=== PATIENT | male | born 1985 | race Caucasian/White ===

== ENCOUNTER 2018-07-29 13:36 | Observation (INO) ==
--- NOTE | 2018-07-29 14:10 | Emergency Department Note ---
Disposition Clinical Impression: Transaminitis, Incidental lung nodule, > 3mm and < 8mm, RUQ pain Hepatitis A Qualifiers: Hepatic coma status: without hepatic coma Qualified Code(s): B15.9 - Hepatitis A without hepatic coma Disposition: Admitted As Inpatient Condition: Good Time of Disposition: 22:41 General Adult HPI - General Chief complaint: ED Abdominal Pain Stated complaint: Flank Pain Time Seen by Provider: 07/29/18 13:44 Source: patient Limitations: no limitations Nursing Notes Reviewed: Yes Vital Signs Reviewed: Yes - History of Present Illness HPI Narrative: 33 old male presents from home a retirement for evaluation of a 2 day history of general health feeling. He has bilateral lower back pain with right upper quadrant pain both of which are worse with deep inspiration. Overnight, he began having a productive cough and is vomited twice. History of polysubstance use including IV drug use; no illicit substances in the last month. PMH: Hepatitis C Medications: None ROS: Positive: As above Negative: Diarrhea, constipation, melena, hematochezia, hematemesis, bilious vomiting, chest pains, palpitations, dyspnea, diaphoresis, incontinence of bowel or bladder, saddle anesthesia, lower extremity numbness/tingling/weakness, midline back pain. Pain Scale: 6 - Related Data Home Medications Medication Instructions Recorded Confirmed Albuterol Sulfate [Ventolin Hfa] 2 puff IH DAILY PRN 07/29/18 07/29/18 Buprenorphine HCl/Naloxone HCl 1.25 film SL DAILY 07/29/18 07/29/18 [Suboxone 8 mg-2 mg Sl Film] Allergies Allergy/AdvReac Type Severity Reaction Status Date / Time No Known Allergies Allergy Verified 07/29/18 21:25 All systems ED: reviewed and negative except as stated. Review of Systems: As Per HPI Past Medical History - Past Medical History Medical history: Reports: hepatitis Psychiatric history: Reports: no psych history - Social History Smoking Status: Current every day smoker Smokeless Tobacco Status: No Alcohol use: Reports: none Drug use: Reports: other Physical Exam Vital Signs Reviewed General: Patient is alert, oriented, and in no acute distress. Head: atraumatic, normocephalic Eye: normal appearance, PERRL, EOMI, no scleral icterus, no conjunctival injection ENT: mucous membranes moist, normal external ear exam Neck: normal inspection, trachea midline, full ROM Chest: normal inspection, symmetric chest rise Respiratory: Good respiratory effort. Bilateral breath sounds are equal with mild end expiratory wheezing in RLL. Cardiovascular: Regular rate and rhythm. No clicks, rubs, gallops, or murmors. Normal heart sounds. Abdomen: Bowel sounds present normoactive x-4 quadrants. Abdomen is soft, nondistended. Mild right upper quadrant tenderness. No guarding or rebound. No organomegaly noted. Musculoskeletal: Spontaneously moving all extremities. No midline back pain and no bilateral lumbar back pain to palpation. Skin: warm, dry, intact. Neuro: GCS 15. Alert and oriented x4. Sensation light touch intact and equal bilateral lower extremity is. Lower extremity strength 5/5 and equal. Psych: Patient's affect is appropriate for situation. - General Limitations: no limitations General appearance: alert, in no apparent distress Course Course Narrative: Given patient's right upper quadrant pain, will draw LFTs, bilirubin. Serum hematology is unremarkable. Serum chemistry shows elevated hepatic enzymes. Slight elevation in bilirubin. Patient was not jaundiced and had no icterus. Urinalysis shows moderate epithelial cells with trace leukocyte esterase and trace bilirubin. Low suspicion for UTI; suspect epithelial cell contamination. Right upper quadrant ultrasound is not convincing for acute cholecystitis. Chest x-ray shows a 6 mm right middle lobe indeterminate nodule. Will advise patient to have outpatient CT evaluation via his primary care physician. Patient's emergency department stay is prolonged secondary to awaiting his hepatitis profile. Chest X-Ray 07/29/18 14:00 IMPRESSION: 1. No acute cardiopulmonary process. 2. Indeterminate 6 mm nodule projecting over the right middle lobe. Consider CT correlation to further characterize this nodule. D/ / 07/29/2018 14:26:04 Gabriel Vance MD / maribel Interpreting Provider: Gabriel Vance MD Gallbladder Ultrasound 07/29/18 14:30 IMPRESSION: Small area of hypoechogenicity along the wall of the gallbladder favored to represent focal fatty sparing. Trace amount of pericholecystic fluid considered less likely. If there is persistent clinical concern for biliary dysfunction a nuclear medicine hepatobiliary scan could always be considered to evaluate for function and exclude possibility of underlying acute cholecystitis. D/ / 07/29/2018 15:34:51 Nicolas Whitney MD / rebecca Interpreting Provider: Nicolas Whitney MD Vital Signs Temperature 97.8 F 07/29/18 13:42 Pulse Rate 76 07/29/18 13:42 Respiratory Rate 16 07/29/18 13:42 Blood Pressure 126/82 07/29/18 13:42 O2 Sat by Pulse Oximetry 99 07/29/18 13:42 Temperature 97.8 F 07/29/18 14:04 Pulse Rate 76 07/29/18 14:04 Respiratory Rate 16 07/29/18 14:04 Blood Pressure 126/82 07/29/18 14:04 O2 Sat by Pulse Oximetry 99 07/29/18 14:04 Oxygen Delivery Oxygen Delivery Room Air Medical Decision Making - Lab Data Result diagrams: 07/29/18 14:22 07/29/18 14:22 Lab Results 07/29/18 07/29/18 07/29/18 Range/Units 14:22 14:22 14:22 WBC 2.9 L (4.3-11.1) K/mcL RBC 5.02 (4.19-5.50) M/mcL Hgb 14.4 (12.9-16.9) g/dL Hct 44.4 (37.5-50.1) % MCV 88.4 (83.0-100.0) fL MCH 28.7 (28.0-33.3) pg MCHC 32.4 (31.6-35.5) g/dL RDW 13.5 (11.5-14.5) % Plt Count 150 (140-400) K/mcL MPV 11.0 (9.4-12.4) fL Immature Gran % 0.3 (0-4) % Seg Neutrophils % 30.5 % Lymphocytes % 52.2 % Monocytes % 15.6 % Eosinophils % 0.7 % Basophils % 0.7 % Neutrophils # 0.9 L (1.6-8.9) K/mcL Lymphocytes # 1.5 (0.6-4.6) K/mcL Monocytes # 0.5 (0.0-1.3) K/mcL Eosinophils # 0.0 (0.0-0.6) K/mcL Basophils # 0.0 (0.0-0.2) K/mcL Reactive Lymphocytes Present A (Not Present) PT 13.4 H (9.4-12.1) Seconds INR 1.2 Sodium 137 (136-145) mEq/L Potassium 4.5 (3.5-5.1) mEq/L Chloride 104 (98-107) mEq/L Carbon Dioxide 29 (23-29) mEq/L BUN 12 (6-20) mg/dL Creatinine 0.80 (0.70-1.30) mg/dL Est GFR ( Amer) > 60 (> 60) Est GFR (Non-Af Amer) > 60 (> 60) BUN/Creatinine Ratio 15 (6-26) Glucose 105 (70-105) mg/dL Calculated Osmolality 284 (280-300) Calcium 9.2 (8.6-10.3) mg/dL Total Bilirubin (0.3-1.0) mg/dL Direct Bilirubin (0.0-0.2) mg/dL Indirect Bilirubin (0.0-1.2) mg/dL AST (13-39) Units/L ALT (7-52) Units/L Alkaline Phosphatase (34-104) Units/L Serum Total Protein (6.4-8.9) g/dL Albumin (3.5-5.7) g/dL Globulin (2.4-3.5) g/dL Albumin/Globulin Ratio (1.1-2.2) Lipase (11-82) Units/L Urine Color (Yellow) Urine Clarity (Clear) Urine pH (5.0-8.0) pH Units Ur Specific [place] (1.010-1.025) Urine Protein (Neg-Trace) mg/dL Urine Glucose (UA) (Normal) mg/dL Urine Ketones (Negative) mg/dL Urine Blood (Negative) Urine Nitrite (Negative) Urine Bilirubin (Negative) Urine Urobilinogen (Normal) mg/dL Ur Leukocyte Esterase (Negative) Urine Microscopic RBC (0-3) per hpf Urine Microscopic WBC (0-3) per hpf Ur Squamous Epith Cells (None-Few) per lpf Urine Bacteria (None-Few) per hpf Hyaline Casts (None-Few) per lpf Ur Culture Indicated? (NO) Hepatitis A IgM Ab (Nonreactive) Hep Bs Antigen (Nonreactive) Hep B Core IgM Ab (Nonreactive) Hepatitis C Ab Screen (Nonreactive) 07/29/18 07/29/18 07/29/18 Range/Units 14:22 14:22 14:22 WBC (4.3-11.1) K/mcL RBC (4.19-5.50) M/mcL Hgb (12.9-16.9) g/dL Hct (37.5-50.1) % MCV (83.0-100.0) fL MCH (28.0-33.3) pg MCHC (31.6-35.5) g/dL RDW (11.5-14.5) % Plt Count (140-400) K/mcL MPV (9.4-12.4) fL Immature Gran % (0-4) % Seg Neutrophils % % Lymphocytes % % Monocytes % % Eosinophils % % Basophils % % Neutrophils # (1.6-8.9) K/mcL Lymphocytes # (0.6-4.6) K/mcL Monocytes # (0.0-1.3) K/mcL Eosinophils # (0.0-0.6) K/mcL Basophils # (0.0-0.2) K/mcL Reactive Lymphocytes (Not Present) PT (9.4-12.1) Seconds INR Sodium (136-145) mEq/L Potassium (3.5-5.1) mEq/L Chloride (98-107) mEq/L Carbon Dioxide (23-29) mEq/L BUN (6-20) mg/dL Creatinine (0.70-1.30) mg/dL Est GFR ( Amer) (> 60) Est GFR (Non-Af Amer) (> 60) BUN/Creatinine Ratio (6-26) Glucose (70-105) mg/dL Calculated Osmolality (280-300) Calcium (8.6-10.3) mg/dL Total Bilirubin 1.2 H 1.2 H (0.3-1.0) mg/dL Direct Bilirubin 0.7 H 0.7 H (0.0-0.2) mg/dL Indirect Bilirubin 0.5 0.5 (0.0-1.2) mg/dL AST 397 H (13-39) Units/L ALT > 500 H (7-52) Units/L Alkaline Phosphatase 117 H (34-104) Units/L Serum Total Protein 7.0 (6.4-8.9) g/dL Albumin 3.8 (3.5-5.7) g/dL Globulin 3.2 (2.4-3.5) g/dL Albumin/Globulin Ratio 1.2 (1.1-2.2) Lipase 21 (11-82) Units/L Urine Color (Yellow) Urine Clarity (Clear) Urine pH (5.0-8.0) pH Units Ur Specific [place] (1.010-1.025) Urine Protein (Neg-Trace) mg/dL Urine Glucose (UA) (Normal) mg/dL Urine Ketones (Negative) mg/dL Urine Blood (Negative) Urine Nitrite (Negative) Urine Bilirubin (Negative) Urine Urobilinogen (Normal) mg/dL Ur Leukocyte Esterase (Negative) Urine Microscopic RBC (0-3) per hpf Urine Microscopic WBC (0-3) per hpf Ur Squamous Epith Cells (None-Few) per lpf Urine Bacteria (None-Few) per hpf Hyaline Casts (None-Few) per lpf Ur Culture Indicated? (NO) Hepatitis A IgM Ab Reactive H (Nonreactive) Hep Bs Antigen Nonreactive (Nonreactive) Hep B Core IgM Ab Reactive H (Nonreactive) Hepatitis C Ab Screen Reactive H (Nonreactive) 07/29/18 Range/Units 16:45 WBC (4.3-11.1) K/mcL RBC (4.19-5.50) M/mcL Hgb (12.9-16.9) g/dL Hct (37.5-50.1) % MCV (83.0-100.0) fL MCH (28.0-33.3) pg MCHC (31.6-35.5) g/dL RDW (11.5-14.5) % Plt Count (140-400) K/mcL MPV (9.4-12.4) fL Immature Gran % (0-4) % Seg Neutrophils % % Lymphocytes % % Monocytes % % Eosinophils % % Basophils % % Neutrophils # (1.6-8.9) K/mcL Lymphocytes # (0.6-4.6) K/mcL Monocytes # (0.0-1.3) K/mcL Eosinophils # (0.0-0.6) K/mcL Basophils # (0.0-0.2) K/mcL Reactive Lymphocytes (Not Present) PT (9.4-12.1) Seconds INR Sodium (136-145) mEq/L Potassium (3.5-5.1) mEq/L Chloride (98-107) mEq/L Carbon Dioxide (23-29) mEq/L BUN (6-20) mg/dL Creatinine (0.70-1.30) mg/dL Est GFR ( Amer) (> 60) Est GFR (Non-Af Amer) (> 60) BUN/Creatinine Ratio (6-26) Glucose (70-105) mg/dL Calculated Osmolality (280-300) Calcium (8.6-10.3) mg/dL Total Bilirubin (0.3-1.0) mg/dL Direct Bilirubin (0.0-0.2) mg/dL Indirect Bilirubin (0.0-1.2) mg/dL AST (13-39) Units/L ALT (7-52) Units/L Alkaline Phosphatase (34-104) Units/L Serum Total Protein (6.4-8.9) g/dL Albumin (3.5-5.7) g/dL Globulin (2.4-3.5) g/dL Albumin/Globulin Ratio (1.1-2.2) Lipase (11-82) Units/L Urine Color Dark Yellow (Yellow) Urine Clarity Clear (Clear) Urine pH 6.0 (5.0-8.0) pH Units Ur Specific [place] 1.026 H (1.010-1.025) Urine Protein Negative (Neg-Trace) mg/dL Urine Glucose (UA) Normal (Normal) mg/dL Urine Ketones Negative (Negative) mg/dL Urine Blood Negative (Negative) Urine Nitrite Negative (Negative) Urine Bilirubin Small H (Negative) Urine Urobilinogen Normal (Normal) mg/dL Ur Leukocyte Esterase Trace H (Negative) Urine Microscopic RBC 0-3 (0-3) per hpf Urine Microscopic WBC 0-3 (0-3) per hpf Ur Squamous Epith Cells Moderate H (None-Few) per lpf Urine Bacteria None Seen (None-Few) per hpf Hyaline Casts None Seen (None-Few) per lpf Ur Culture Indicated? YES A (NO) Hepatitis A IgM Ab (Nonreactive) Hep Bs Antigen (Nonreactive) Hep B Core IgM Ab (Nonreactive) Hepatitis C Ab Screen (Nonreactive)
--- NOTE | 2018-07-29 14:24 | Emergency Department Note ---
Disposition Clinical Impression: Transaminitis, Incidental lung nodule, > 3mm and < 8mm, RUQ pain Disposition: Admitted As Inpatient Condition: Good General Adult HPI - General Chief complaint: ED Abdominal Pain Stated complaint: Flank Pain Time Seen by Provider: 07/29/18 13:44 Source: patient Mode of arrival: ambulatory Limitations: no limitations Nursing Notes Reviewed: Yes Vital Signs Reviewed: Yes - History of Present Illness HPI Narrative: Pt presents today for a 2 day complaint of general bodyaches associated with intermittent subjective chills and fevers. pt states that recently he has been experiencing bilateral lower back pain on the sides he describes as "kidney pain " that is sharp and nature and is worse with inspiration and has noticed a dark tone to his urine as well as a strong odor. Pt denies any chest pain, sob, n/v/d , palpitations, lower extremity edema, headaches, penile discharge or changes in mentation at this time. Pt does state past drug abuse including opiates, cocaine, meth and marijuana but nothing for the past month. ROS: + Fevers, chills, bodyaches, dark odorous urine, lower back pain, - Rhinorhea, congestions, sob, chest pain, pleuritic chest pain, abdominal pain , rashes, dysuria, lower extremity swelling, Drug use: Methamphetamines, cocaine, heroin, marijuana (nothing in the past month) Sexual: Active w/ one female partner, no protection Past medical Hx: Pt unaware Pt Subjective Complaint: Flank Pain Onset (ago): day(s) Location: back Radiation: non-radiation Pain Severity: moderate Pain Scale: 6 Quality: stabbing Consistency: intermittent Worsens with: other (Inspiration) Associated symptoms: Reports: fever/chills, malaise - Related Data Allergies Allergy/AdvReac Type Severity Reaction Status Date / Time No Known Allergies Allergy Verified 07/29/18 21:25 All systems ED: reviewed and negative except as stated. Constitutional: Reports: as per HPI Cardiovascular: Reports: as per HPI Respiratory: Reports: as per HPI Gastrointestinal: Reports: as per HPI Genitourinary: Reports: as per HPI Musculoskeletal: Reports: back pain Integumentary: Reports: as per HPI Neurological: Reports: as per HPI Past Medical History - Past Medical History Medical history: Reports: no medical history, non-contributory Physical Exam - General Limitations: no limitations - Head Head exam: atraumatic - Chest Chest inspection: Present: normal inspection - Respiratory Respiratory exam: Present: normal lung sounds bilaterally - Abdominal Exam Abdominal exam: Present: soft, tenderness, normal bowel sounds Abdominal tenderness: Present: RUQ, moderate - Expanded Lower Extremity Exam Neurovascular/Tendon exam: Present: normal capillary refill - Back Exam Back exam: Present: normal inspection - Neurological Exam Neurological exam: Present: alert, oriented X3 - Psychiatric Psychiatric exam: Present: normal affect - Skin Skin exam: Present: warm, dry, intact, normal color Course Vital Signs Temperature 97.8 F 07/29/18 13:42 Pulse Rate 76 07/29/18 13:42 Respiratory Rate 16 07/29/18 13:42 Blood Pressure 126/82 07/29/18 13:42 O2 Sat by Pulse Oximetry 99 07/29/18 13:42 Temperature 97.8 F 07/29/18 14:04 Pulse Rate 76 07/29/18 14:04 Respiratory Rate 16 07/29/18 14:04 Blood Pressure 126/82 07/29/18 14:04 O2 Sat by Pulse Oximetry 99 07/29/18 14:04 Oxygen Delivery Oxygen Delivery Room Air Medical Decision Making - Lab Data Result diagrams: 07/29/18 14:22 07/29/18 14:22 Lab Results 07/29/18 07/29/18 07/29/18 Range/Units 14:22 14:22 14:22 WBC 2.9 L (4.3-11.1) K/mcL RBC 5.02 (4.19-5.50) M/mcL Hgb 14.4 (12.9-16.9) g/dL Hct 44.4 (37.5-50.1) % MCV 88.4 (83.0-100.0) fL MCH 28.7 (28.0-33.3) pg MCHC 32.4 (31.6-35.5) g/dL RDW 13.5 (11.5-14.5) % Plt Count 150 (140-400) K/mcL MPV 11.0 (9.4-12.4) fL Immature Gran % 0.3 (0-4) % Seg Neutrophils % 30.5 % Lymphocytes % 52.2 % Monocytes % 15.6 % Eosinophils % 0.7 % Basophils % 0.7 % Neutrophils # 0.9 L (1.6-8.9) K/mcL Lymphocytes # 1.5 (0.6-4.6) K/mcL Monocytes # 0.5 (0.0-1.3) K/mcL Eosinophils # 0.0 (0.0-0.6) K/mcL Basophils # 0.0 (0.0-0.2) K/mcL Reactive Lymphocytes Present A (Not Present) PT 13.4 H (9.4-12.1) Seconds INR 1.2 Sodium 137 (136-145) mEq/L Potassium 4.5 (3.5-5.1) mEq/L Chloride 104 (98-107) mEq/L Carbon Dioxide 29 (23-29) mEq/L BUN 12 (6-20) mg/dL Creatinine 0.80 (0.70-1.30) mg/dL Est GFR ( Amer) > 60 (> 60) Est GFR (Non-Af Amer) > 60 (> 60) BUN/Creatinine Ratio 15 (6-26) Glucose 105 (70-105) mg/dL Calculated Osmolality 284 (280-300) Calcium 9.2 (8.6-10.3) mg/dL Total Bilirubin (0.3-1.0) mg/dL Direct Bilirubin (0.0-0.2) mg/dL Indirect Bilirubin (0.0-1.2) mg/dL AST (13-39) Units/L ALT (7-52) Units/L Alkaline Phosphatase (34-104) Units/L Serum Total Protein (6.4-8.9) g/dL Albumin (3.5-5.7) g/dL Globulin (2.4-3.5) g/dL Albumin/Globulin Ratio (1.1-2.2) Lipase (11-82) Units/L Urine Color (Yellow) Urine Clarity (Clear) Urine pH (5.0-8.0) pH Units Ur Specific [place] (1.010-1.025) Urine Protein (Neg-Trace) mg/dL Urine Glucose (UA) (Normal) mg/dL Urine Ketones (Negative) mg/dL Urine Blood (Negative) Urine Nitrite (Negative) Urine Bilirubin (Negative) Urine Urobilinogen (Normal) mg/dL Ur Leukocyte Esterase (Negative) Urine Microscopic RBC (0-3) per hpf Urine Microscopic WBC (0-3) per hpf Ur Squamous Epith Cells (None-Few) per lpf Urine Bacteria (None-Few) per hpf Hyaline Casts (None-Few) per lpf Ur Culture Indicated? (NO) Hepatitis A IgM Ab (Nonreactive) Hep Bs Antigen (Nonreactive) Hep B Core IgM Ab (Nonreactive) Hepatitis C Ab Screen (Nonreactive) 07/29/18 07/29/18 07/29/18 Range/Units 14:22 14:22 14:22 WBC (4.3-11.1) K/mcL RBC (4.19-5.50) M/mcL Hgb (12.9-16.9) g/dL Hct (37.5-50.1) % MCV (83.0-100.0) fL MCH (28.0-33.3) pg MCHC (31.6-35.5) g/dL RDW (11.5-14.5) % Plt Count (140-400) K/mcL MPV (9.4-12.4) fL Immature Gran % (0-4) % Seg Neutrophils % % Lymphocytes % % Monocytes % % Eosinophils % % Basophils % % Neutrophils # (1.6-8.9) K/mcL Lymphocytes # (0.6-4.6) K/mcL Monocytes # (0.0-1.3) K/mcL Eosinophils # (0.0-0.6) K/mcL Basophils # (0.0-0.2) K/mcL Reactive Lymphocytes (Not Present) PT (9.4-12.1) Seconds INR Sodium (136-145) mEq/L Potassium (3.5-5.1) mEq/L Chloride (98-107) mEq/L Carbon Dioxide (23-29) mEq/L BUN (6-20) mg/dL Creatinine (0.70-1.30) mg/dL Est GFR ( Amer) (> 60) Est GFR (Non-Af Amer) (> 60) BUN/Creatinine Ratio (6-26) Glucose (70-105) mg/dL Calculated Osmolality (280-300) Calcium (8.6-10.3) mg/dL Total Bilirubin 1.2 H 1.2 H (0.3-1.0) mg/dL Direct Bilirubin 0.7 H 0.7 H (0.0-0.2) mg/dL Indirect Bilirubin 0.5 0.5 (0.0-1.2) mg/dL AST 397 H (13-39) Units/L ALT > 500 H (7-52) Units/L Alkaline Phosphatase 117 H (34-104) Units/L Serum Total Protein 7.0 (6.4-8.9) g/dL Albumin 3.8 (3.5-5.7) g/dL Globulin 3.2 (2.4-3.5) g/dL Albumin/Globulin Ratio 1.2 (1.1-2.2) Lipase 21 (11-82) Units/L Urine Color (Yellow) Urine Clarity (Clear) Urine pH (5.0-8.0) pH Units Ur Specific [place] (1.010-1.025) Urine Protein (Neg-Trace) mg/dL Urine Glucose (UA) (Normal) mg/dL Urine Ketones (Negative) mg/dL Urine Blood (Negative) Urine Nitrite (Negative) Urine Bilirubin (Negative) Urine Urobilinogen (Normal) mg/dL Ur Leukocyte Esterase (Negative) Urine Microscopic RBC (0-3) per hpf Urine Microscopic WBC (0-3) per hpf Ur Squamous Epith Cells (None-Few) per lpf Urine Bacteria (None-Few) per hpf Hyaline Casts (None-Few) per lpf Ur Culture Indicated? (NO) Hepatitis A IgM Ab Reactive H (Nonreactive) Hep Bs Antigen Nonreactive (Nonreactive) Hep B Core IgM Ab Reactive H (Nonreactive) Hepatitis C Ab Screen Reactive H (Nonreactive) 07/29/18 Range/Units 16:45 WBC (4.3-11.1) K/mcL RBC (4.19-5.50) M/mcL Hgb (12.9-16.9) g/dL Hct (37.5-50.1) % MCV (83.0-100.0) fL MCH (28.0-33.3) pg MCHC (31.6-35.5) g/dL RDW (11.5-14.5) % Plt Count (140-400) K/mcL MPV (9.4-12.4) fL Immature Gran % (0-4) % Seg Neutrophils % % Lymphocytes % % Monocytes % % Eosinophils % % Basophils % % Neutrophils # (1.6-8.9) K/mcL Lymphocytes # (0.6-4.6) K/mcL Monocytes # (0.0-1.3) K/mcL Eosinophils # (0.0-0.6) K/mcL Basophils # (0.0-0.2) K/mcL Reactive Lymphocytes (Not Present) PT (9.4-12.1) Seconds INR Sodium (136-145) mEq/L Potassium (3.5-5.1) mEq/L Chloride (98-107) mEq/L Carbon Dioxide (23-29) mEq/L BUN (6-20) mg/dL Creatinine (0.70-1.30) mg/dL Est GFR ( Amer) (> 60) Est GFR (Non-Af Amer) (> 60) BUN/Creatinine Ratio (6-26) Glucose (70-105) mg/dL Calculated Osmolality (280-300) Calcium (8.6-10.3) mg/dL Total Bilirubin (0.3-1.0) mg/dL Direct Bilirubin (0.0-0.2) mg/dL Indirect Bilirubin (0.0-1.2) mg/dL AST (13-39) Units/L ALT (7-52) Units/L Alkaline Phosphatase (34-104) Units/L Serum Total Protein (6.4-8.9) g/dL Albumin (3.5-5.7) g/dL Globulin (2.4-3.5) g/dL Albumin/Globulin Ratio (1.1-2.2) Lipase (11-82) Units/L Urine Color Dark Yellow (Yellow) Urine Clarity Clear (Clear) Urine pH 6.0 (5.0-8.0) pH Units Ur Specific [place] 1.026 H (1.010-1.025) Urine Protein Negative (Neg-Trace) mg/dL Urine Glucose (UA) Normal (Normal) mg/dL Urine Ketones Negative (Negative) mg/dL Urine Blood Negative (Negative) Urine Nitrite Negative (Negative) Urine Bilirubin Small H (Negative) Urine Urobilinogen Normal (Normal) mg/dL Ur Leukocyte Esterase Trace H (Negative) Urine Microscopic RBC 0-3 (0-3) per hpf Urine Microscopic WBC 0-3 (0-3) per hpf Ur Squamous Epith Cells Moderate H (None-Few) per lpf Urine Bacteria None Seen (None-Few) per hpf Hyaline Casts None Seen (None-Few) per lpf Ur Culture Indicated? YES A (NO) Hepatitis A IgM Ab (Nonreactive) Hep Bs Antigen (Nonreactive) Hep B Core IgM Ab (Nonreactive) Hepatitis C Ab Screen (Nonreactive)
--- NOTE | 2018-07-29 14:39 | Emergency Department Note ---
Disposition Clinical Impression: Transaminitis, Incidental lung nodule, > 3mm and < 8mm, RUQ pain Disposition: Admitted As Inpatient Condition: Good General Adult HPI - General Chief complaint: ED Abdominal Pain Stated complaint: Flank Pain Time Seen by Provider: 07/29/18 13:44 Source: patient Mode of arrival: ambulatory Limitations: no limitations - History of Present Illness Location: back Pain Scale: 6 Quality: stabbing Worsens with: other (Inspiration) Associated symptoms: Reports: fever/chills, malaise - Related Data Home Medications Medication Instructions Recorded Confirmed Albuterol Sulfate [Ventolin Hfa] 2 puff IH DAILY PRN 07/29/18 07/29/18 Buprenorphine HCl/Naloxone HCl 1.25 film SL DAILY 07/29/18 07/29/18 [Suboxone 8 mg-2 mg Sl Film] Allergies Allergy/AdvReac Type Severity Reaction Status Date / Time No Known Allergies Allergy Verified 07/29/18 21:25 Constitutional: Reports: as per HPI Cardiovascular: Reports: as per HPI Respiratory: Reports: as per HPI Gastrointestinal: Reports: as per HPI Genitourinary: Reports: as per HPI Musculoskeletal: Reports: back pain Integumentary: Reports: as per HPI Neurological: Reports: as per HPI Past Medical History - Past Medical History Medical history: Reports: no medical history, non-contributory Psychiatric history: Reports: no psych history - Social History Smoking Status: Current every day smoker Smokeless Tobacco Status: No Alcohol use: Reports: none Drug use: Reports: other Physical Exam - General Limitations: no limitations General appearance: alert, in no apparent distress Course Vital Signs Temperature 97.8 F 07/29/18 13:42 Pulse Rate 76 07/29/18 13:42 Respiratory Rate 16 07/29/18 13:42 Blood Pressure 126/82 07/29/18 13:42 O2 Sat by Pulse Oximetry 99 07/29/18 13:42 Temperature 97.8 F 07/29/18 14:04 Pulse Rate 76 07/29/18 14:04 Respiratory Rate 16 07/29/18 14:04 Blood Pressure 126/82 07/29/18 14:04 O2 Sat by Pulse Oximetry 99 07/29/18 14:04 Oxygen Delivery Oxygen Delivery Room Air Medical Decision Making - Lab Data Result diagrams: 07/29/18 14:22 07/29/18 14:22 Lab Results 07/29/18 07/29/18 07/29/18 Range/Units 14:22 14:22 14:22 WBC 2.9 L (4.3-11.1) K/mcL RBC 5.02 (4.19-5.50) M/mcL Hgb 14.4 (12.9-16.9) g/dL Hct 44.4 (37.5-50.1) % MCV 88.4 (83.0-100.0) fL MCH 28.7 (28.0-33.3) pg MCHC 32.4 (31.6-35.5) g/dL RDW 13.5 (11.5-14.5) % Plt Count 150 (140-400) K/mcL MPV 11.0 (9.4-12.4) fL Immature Gran % 0.3 (0-4) % Seg Neutrophils % 30.5 % Lymphocytes % 52.2 % Monocytes % 15.6 % Eosinophils % 0.7 % Basophils % 0.7 % Neutrophils # 0.9 L (1.6-8.9) K/mcL Lymphocytes # 1.5 (0.6-4.6) K/mcL Monocytes # 0.5 (0.0-1.3) K/mcL Eosinophils # 0.0 (0.0-0.6) K/mcL Basophils # 0.0 (0.0-0.2) K/mcL Reactive Lymphocytes Present A (Not Present) PT 13.4 H (9.4-12.1) Seconds INR 1.2 Sodium 137 (136-145) mEq/L Potassium 4.5 (3.5-5.1) mEq/L Chloride 104 (98-107) mEq/L Carbon Dioxide 29 (23-29) mEq/L BUN 12 (6-20) mg/dL Creatinine 0.80 (0.70-1.30) mg/dL Est GFR ( Amer) > 60 (> 60) Est GFR (Non-Af Amer) > 60 (> 60) BUN/Creatinine Ratio 15 (6-26) Glucose 105 (70-105) mg/dL Calculated Osmolality 284 (280-300) Calcium 9.2 (8.6-10.3) mg/dL Total Bilirubin (0.3-1.0) mg/dL Direct Bilirubin (0.0-0.2) mg/dL Indirect Bilirubin (0.0-1.2) mg/dL AST (13-39) Units/L ALT (7-52) Units/L Alkaline Phosphatase (34-104) Units/L Serum Total Protein (6.4-8.9) g/dL Albumin (3.5-5.7) g/dL Globulin (2.4-3.5) g/dL Albumin/Globulin Ratio (1.1-2.2) Lipase (11-82) Units/L Urine Color (Yellow) Urine Clarity (Clear) Urine pH (5.0-8.0) pH Units Ur Specific [place] (1.010-1.025) Urine Protein (Neg-Trace) mg/dL Urine Glucose (UA) (Normal) mg/dL Urine Ketones (Negative) mg/dL Urine Blood (Negative) Urine Nitrite (Negative) Urine Bilirubin (Negative) Urine Urobilinogen (Normal) mg/dL Ur Leukocyte Esterase (Negative) Urine Microscopic RBC (0-3) per hpf Urine Microscopic WBC (0-3) per hpf Ur Squamous Epith Cells (None-Few) per lpf Urine Bacteria (None-Few) per hpf Hyaline Casts (None-Few) per lpf Ur Culture Indicated? (NO) Hepatitis A IgM Ab (Nonreactive) Hep Bs Antigen (Nonreactive) Hep B Core IgM Ab (Nonreactive) Hepatitis C Ab Screen (Nonreactive) 07/29/18 07/29/18 07/29/18 Range/Units 14:22 14:22 14:22 WBC (4.3-11.1) K/mcL RBC (4.19-5.50) M/mcL Hgb (12.9-16.9) g/dL Hct (37.5-50.1) % MCV (83.0-100.0) fL MCH (28.0-33.3) pg MCHC (31.6-35.5) g/dL RDW (11.5-14.5) % Plt Count (140-400) K/mcL MPV (9.4-12.4) fL Immature Gran % (0-4) % Seg Neutrophils % % Lymphocytes % % Monocytes % % Eosinophils % % Basophils % % Neutrophils # (1.6-8.9) K/mcL Lymphocytes # (0.6-4.6) K/mcL Monocytes # (0.0-1.3) K/mcL Eosinophils # (0.0-0.6) K/mcL Basophils # (0.0-0.2) K/mcL Reactive Lymphocytes (Not Present) PT (9.4-12.1) Seconds INR Sodium (136-145) mEq/L Potassium (3.5-5.1) mEq/L Chloride (98-107) mEq/L Carbon Dioxide (23-29) mEq/L BUN (6-20) mg/dL Creatinine (0.70-1.30) mg/dL Est GFR ( Amer) (> 60) Est GFR (Non-Af Amer) (> 60) BUN/Creatinine Ratio (6-26) Glucose (70-105) mg/dL Calculated Osmolality (280-300) Calcium (8.6-10.3) mg/dL Total Bilirubin 1.2 H 1.2 H (0.3-1.0) mg/dL Direct Bilirubin 0.7 H 0.7 H (0.0-0.2) mg/dL Indirect Bilirubin 0.5 0.5 (0.0-1.2) mg/dL AST 397 H (13-39) Units/L ALT > 500 H (7-52) Units/L Alkaline Phosphatase 117 H (34-104) Units/L Serum Total Protein 7.0 (6.4-8.9) g/dL Albumin 3.8 (3.5-5.7) g/dL Globulin 3.2 (2.4-3.5) g/dL Albumin/Globulin Ratio 1.2 (1.1-2.2) Lipase 21 (11-82) Units/L Urine Color (Yellow) Urine Clarity (Clear) Urine pH (5.0-8.0) pH Units Ur Specific [place] (1.010-1.025) Urine Protein (Neg-Trace) mg/dL Urine Glucose (UA) (Normal) mg/dL Urine Ketones (Negative) mg/dL Urine Blood (Negative) Urine Nitrite (Negative) Urine Bilirubin (Negative) Urine Urobilinogen (Normal) mg/dL Ur Leukocyte Esterase (Negative) Urine Microscopic RBC (0-3) per hpf Urine Microscopic WBC (0-3) per hpf Ur Squamous Epith Cells (None-Few) per lpf Urine Bacteria (None-Few) per hpf Hyaline Casts (None-Few) per lpf Ur Culture Indicated? (NO) Hepatitis A IgM Ab Reactive H (Nonreactive) Hep Bs Antigen Nonreactive (Nonreactive) Hep B Core IgM Ab Reactive H (Nonreactive) Hepatitis C Ab Screen Reactive H (Nonreactive) 07/29/18 Range/Units 16:45 WBC (4.3-11.1) K/mcL RBC (4.19-5.50) M/mcL Hgb (12.9-16.9) g/dL Hct (37.5-50.1) % MCV (83.0-100.0) fL MCH (28.0-33.3) pg MCHC (31.6-35.5) g/dL RDW (11.5-14.5) % Plt Count (140-400) K/mcL MPV (9.4-12.4) fL Immature Gran % (0-4) % Seg Neutrophils % % Lymphocytes % % Monocytes % % Eosinophils % % Basophils % % Neutrophils # (1.6-8.9) K/mcL Lymphocytes # (0.6-4.6) K/mcL Monocytes # (0.0-1.3) K/mcL Eosinophils # (0.0-0.6) K/mcL Basophils # (0.0-0.2) K/mcL Reactive Lymphocytes (Not Present) PT (9.4-12.1) Seconds INR Sodium (136-145) mEq/L Potassium (3.5-5.1) mEq/L Chloride (98-107) mEq/L Carbon Dioxide (23-29) mEq/L BUN (6-20) mg/dL Creatinine (0.70-1.30) mg/dL Est GFR ( Amer) (> 60) Est GFR (Non-Af Amer) (> 60) BUN/Creatinine Ratio (6-26) Glucose (70-105) mg/dL Calculated Osmolality (280-300) Calcium (8.6-10.3) mg/dL Total Bilirubin (0.3-1.0) mg/dL Direct Bilirubin (0.0-0.2) mg/dL Indirect Bilirubin (0.0-1.2) mg/dL AST (13-39) Units/L ALT (7-52) Units/L Alkaline Phosphatase (34-104) Units/L Serum Total Protein (6.4-8.9) g/dL Albumin (3.5-5.7) g/dL Globulin (2.4-3.5) g/dL Albumin/Globulin Ratio (1.1-2.2) Lipase (11-82) Units/L Urine Color Dark Yellow (Yellow) Urine Clarity Clear (Clear) Urine pH 6.0 (5.0-8.0) pH Units Ur Specific [place] 1.026 H (1.010-1.025) Urine Protein Negative (Neg-Trace) mg/dL Urine Glucose (UA) Normal (Normal) mg/dL Urine Ketones Negative (Negative) mg/dL Urine Blood Negative (Negative) Urine Nitrite Negative (Negative) Urine Bilirubin Small H (Negative) Urine Urobilinogen Normal (Normal) mg/dL Ur Leukocyte Esterase Trace H (Negative) Urine Microscopic RBC 0-3 (0-3) per hpf Urine Microscopic WBC 0-3 (0-3) per hpf Ur Squamous Epith Cells Moderate H (None-Few) per lpf Urine Bacteria None Seen (None-Few) per hpf Hyaline Casts None Seen (None-Few) per lpf Ur Culture Indicated? YES A (NO) Hepatitis A IgM Ab (Nonreactive) Hep Bs Antigen (Nonreactive) Hep B Core IgM Ab (Nonreactive) Hepatitis C Ab Screen (Nonreactive) Attestation Statement - Attestation Attestation: I examined this patient and my medical decision-making was reviewed with the Resident Physician. I agree with the documented findings, disposition and treatment plan as described except to the extent set forth below. Patient presents to the emergency department with flank and right upper quadrant abdominal pain for couple of days. Patient states that some vomiting, one episode today. States the symptoms started after he ate some apples that he thinks were bad. Son ate the same apples and now has had for mouth. On exam he is not in any acute distress. He does have some right upper quadrant tenderness, however he is not guarding. Plan. Bedside ultrasound shows some gallstones. Will check basic labs and a formal ultrasound of the gallbladder. UA. Patient's ultrasound reviewed. Hepatitis profile still pending at this time. Positive for hepatitis A. Patient admitted to medicine. Chest X-Ray 07/29/18 14:00 IMPRESSION: 1. No acute cardiopulmonary process. 2. Indeterminate 6 mm nodule projecting over the right middle lobe. Consider CT correlation to further characterize this nodule. D/ / 07/29/2018 14:26:04 Gabriel Vance MD / maribel Interpreting Provider: Gabriel Vance MD Gallbladder Ultrasound 07/29/18 14:30 IMPRESSION: Small area of hypoechogenicity along the wall of the gallbladder favored to represent focal fatty sparing. Trace amount of pericholecystic fluid considered less likely. If there is persistent clinical concern for biliary dysfunction a nuclear medicine hepatobiliary scan could always be considered to evaluate for function and exclude possibility of underlying acute cholecystitis. D/ / 07/29/2018 15:34:51 Nicolas Whitney MD / rebecca Interpreting Provider: Nicolas Whitney MD
[2018-07-29 14:49] LABS: Basophils % 0.7 %; Eosinophils % 0.7 %; Hematocrit 44.4 % (37.5-50.1); Hemoglobin 14.4 g/dL (12.9-16.9); Immature Granulocytes % 0.3 % (0-4); Lymphocytes # 1.5 K/mcL (0.6-4.6); Lymphocytes % 52.2 %; Mean Corpuscular HGB Conc 32.4 g/dL (31.6-35.5); Mean Corpuscular Hemoglobin 28.7 pg (28.0-33.3); Mean Corpuscular Volume 88.4 fL (83.0-100.0); Monocytes # 0.5 K/mcL (0.0-1.3); Monocytes % 15.6 %; Neutrophils # 0.9 K/mcL (1.6-8.9); Platelet Count 150 K/mcL (140-400); Red Blood Count 5.02 M/mcL (4.19-5.50); Red Cell Distribution Width 13.5 % (11.5-14.5); Segmented Neutrophils % 30.5 %
[2018-07-29 15:02] LABS: INR 1.2; Prothrombin Time 13.4 Seconds (9.4-12.1)
[2018-07-29 15:07] LABS: BUN/Creatinine Ratio 15 (6-26); Bilirubin,Direct 0.7 mg/dL (0.0-0.2); Bilirubin,Indirect 0.5 mg/dL (0.0-1.2); Bilirubin,Total 1.2 mg/dL (0.3-1.0); Blood Urea Nitrogen 12 mg/dL (6-20); Calcium 9.2 mg/dL (8.6-10.3); Carbon Dioxide 29 mEq/L (23-29); Chloride 104 mEq/L (98-107); Glucose 105 mg/dL (70-105); Osmolality,Calculated 284 (280-300); Potassium 4.5 mEq/L (3.5-5.1); Sodium 137 mEq/L (136-145); eGFR For Non-African Americans > 60 (> 60)
[2018-07-29 15:11] LABS: Alanine Aminotransferase > 500 Units/L (7-52); Albumin 3.8 g/dL (3.5-5.7); Albumin/Globulin Ratio 1.2 (1.1-2.2); Alkaline Phosphatase 117 Units/L (34-104); Aspartate Amino Transferase 397 Units/L (13-39); Bilirubin,Direct 0.7 mg/dL (0.0-0.2); Bilirubin,Indirect 0.5 mg/dL (0.0-1.2); Bilirubin,Total 1.2 mg/dL (0.3-1.0); Globulin 3.2 g/dL (2.4-3.5); Lipase 21 Units/L (11-82)
[2018-07-29 15:32] LABS: Reactive Lymphocytes Present (Not Present)
[2018-07-29 16:49] LABS: Bilirubin,Urine Small (Negative); Blood,Urine Negative (Negative); Clarity,Urine Clear (Clear); Color,Urine Dark Yellow (Yellow); Glucose,Urine (UA) Normal (Normal); Ketones,Urine Negative (Negative); Leukocyte Esterase,Urine Trace (Negative); Nitrite,Urine Negative (Negative); Protein,Urine Negative (Neg-Trace); Specific Gravity,Urine 1.026 (1.010-1.025); Urobilinogen,Urine Normal (Normal)
[2018-07-29 16:51] LABS: Bacteria,Urine None Seen per hpf (None-Few); Hyaline Casts,Urine None Seen per lpf (None-Few); RBC,Urine 0-3 per hpf (0-3); Squamous Epithelial Cell,Urine Moderate per lpf (None-Few); WBC,Urine 0-3 per hpf (0-3)
[2018-07-29 18:52] LABS: Hepatitis A Antibody IgM Reactive (Nonreactive)
[2018-07-29 18:53] LABS: Hepatitis B Surface Antigen Nonreactive (Nonreactive)
[2018-07-29 19:06] LABS: Hepatitis B Core IgM Reactive (Nonreactive); Hepatitis C Virus Antibody Reactive (Nonreactive)
--- NOTE | 2018-07-29 21:21 | Internal Med History&Physical ---
Addendum entered and electronically signed by Kev Álvarez MD 07/30/18 20:29: I saw and evaluated the patient. I reviewed the residents note, performed my own physical examination and agree with findings and plan as documented in the residents note. Patient seen and examined on 07/30/18. Patient has acute hepatitis A. History of IVDU, currently homeless. Will continue to monitor. GI consult in the morning for further recommendations. Original Note: Date of Encounter: 07/29/18 Time of Encounter: 21:21 Internal Medicine - H&P: HPI Chief complaint: Abdominal Pain Admitted From: Emergency Dept Plans for Post Hospital Care: Home History of present illness: Mr. Yoo is a 33 year old male with no notable past medical history. Social history consists of homelessness, past IV drug abuse, past other substance abuse, current tobacco abuse, current Suboxone clinic patient, no alcohol use. Family history consists of adopted. Patient presented today with chief complaint of right flank and right upper quadrant abdominal pain for several days. He denies any travel or strange foods. He does state that his oldest son had similar symptoms last week and was diagnosed with an virus he could not recall. He also complains of associated fatigue, nausea, vomiting, anorexia. He states the pain is worse with deep breath. On arrival vitals were stable. In the ED CBC/CMP were significant for decreased white count, elevated bilirubin and liver enzymes. Gallbladder US demonstrated non-specific trace pericholecystic fluid. Hepatitis panel was positive for Hep A IgM Ab, Hep B Core IgM AB, and Hep C Ab. Past Med Surg Social Fam HX - Past Medical History Medical history: no medical history, non-contributory Additional medical history: Hep C Psychiatric history: no psych history - Social History Smoking Status: Current every day smoker Smokeless Tobacco Status: No Alcohol use: none Drug use: other - Additional Family History Additional family history: Patient is adopted Internal Medicine - H&P: Meds Albuterol Sulfate [Ventolin Hfa] 2 puff IH DAILY PRN 07/29/18 [History] Buprenorphine HCl/Naloxone HCl [Suboxone 8 mg-2 mg Sl Film] 1.25 film SL DAILY 07/29/18 [History] Allergy/AdvReac Type Severity Reaction Status Date / Time No Known Allergies Allergy Verified 07/29/18 21:25 All Systems PM: A 10-system review of systems was performed and is negative for pertinent find ings except as documented above in the HPI. - Constitutional Vitals: Temp Pulse Resp BP Pulse Ox 97.8 F 76 16 126/82 99 07/29/18 14:04 07/29/18 14:04 07/29/18 14:04 07/29/18 14:04 07/29/18 14:04 Exam: Patient in no acute distress Alert and oriented 3 Normal affect Cranial nerves II through XII intact Pupils equal and reactive to light Mucous membranes moist Heart in regular rate and rhythm without murmur or gallop Lungs demonstrated scattered and diffuse wheezing Abdomen soft and tender in the right upper quadrant without guarding, normal bowel sounds present Bilateral lower extremities nonedematous Skin warm and dry Internal Med - H&P Results - Labs CBC & Chem 7: 07/29/18 14:22 07/29/18 14:22 Labs: Short CBC 07/29/18 Range/Units 14:22 WBC 2.9 L (4.3-11.1) K/mcL Hgb 14.4 (12.9-16.9) g/dL Hct 44.4 (37.5-50.1) % Plt Count 150 (140-400) K/mcL Neutrophils # 0.9 L (1.6-8.9) K/mcL BMP 07/29/18 14:22 Sodium 137 Potassium 4.5 Chloride 104 Carbon Dioxide 29 BUN 12 Creatinine 0.80 Glucose 105 Calcium 9.2 Liver Function 07/29/18 07/29/18 Range/Units 14:22 14:22 Total Bilirubin 1.2 H 1.2 H (0.3-1.0) mg/dL Direct Bilirubin 0.7 H 0.7 H (0.0-0.2) mg/dL AST 397 H (13-39) Units/L ALT > 500 H (7-52) Units/L Alkaline Phosphatase 117 H (34-104) Units/L Albumin 3.8 (3.5-5.7) g/dL Urine 07/29/18 Range/Units 16:45 Urine Color Dark Yellow (Yellow) Urine Clarity Clear (Clear) Urine pH 6.0 (5.0-8.0) pH Units Ur Specific [place] 1.026 H (1.010-1.025) Urine Protein Negative (Neg-Trace) mg/dL Urine Glucose (UA) Normal (Normal) mg/dL - Impressions ITS Impressions Chest X-Ray 07/29/18 14:00 IMPRESSION: 1. No acute cardiopulmonary process. 2. Indeterminate 6 mm nodule projecting over the right middle lobe. Consider CT correlation to further characterize this nodule. D/ / 07/29/2018 14:26:04 Gabriel Vance MD / maribel Interpreting Provider: Gabriel Vance MD Gallbladder Ultrasound 07/29/18 14:30 IMPRESSION: Small area of hypoechogenicity along the wall of the gallbladder favored to represent focal fatty sparing. Trace amount of pericholecystic fluid considered less likely. If there is persistent clinical concern for biliary dysfunction, a nuclear medicine hepatobiliary scan could always be considered to evaluate for function and exclude possibility of underlying acute cholecystitis. 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 Plan MIVF NS 125ml/hr Ondansetron SL 4mg Q4H PRN Regular diet as tolerated Repeat CMP in AM Qualifiers: Hepatic coma status: without hepatic coma Qualified Code(s): B15.9 - Hepatitis A without hepatic coma (2) Hepatitis B Current Visit: Yes Status: Acute Assessment and plan: Hepatitis panel detected hep B core IgM antibody positive Patient was unaware of diagnosis and does not have previous documentation Patient is adopted and has history of IV drug abuse Plan GI consultation Repeat CMP in AM Qualifiers: Viral hepatitis chronicity: unspecified Hepatic coma status: without hepatic coma Hepatitis delta agent presence: without delta-agent Qualified Code(s): B19.10 - Unspecified viral hepatitis B without hepatic coma (3) Hepatitis C Current Visit: Yes Status: Acute Assessment and plan: Hepatitis C antibody positive on hepatitis panel Patient was unaware of diagnosis and has no previous documentation He does mention his girlfriend is hepatitis C positive He does have history of IV drug abuse Plan GI consultation Repeat CMP in AM Qualifiers: Viral hepatitis chronicity: unspecified Hepatic coma status: without hepatic coma Qualified Code(s): B19.20 - Unspecified viral hepatitis C without hepatic coma (4) Tobacco abuse Current Visit: Yes Status: Chronic Assessment and plan: Patient does admit to smoking history Plan for cessation counseling Nicotine patch while admitted (5) Opioid dependence Current Visit: Yes Status: Chronic Assessment and plan: Patient has remote history of IV drug abuse and Methamphetamine abuse He is currently participating in Suboxone clinic We will continue Subutex Qualifiers: Substance use status: uncomplicated Qualified Code(s): F11.20 - Opioid dependence, uncomplicated (6) Incidental lung nodule, > 3mm and < 8mm Current Visit: Yes Status: Acute Assessment and plan: Incidental 6 mm nodule found in right middle lobe of lung Patient does have smoking history Patient does admit to productive cough Recommend follow-up chest CT (7) Transaminitis Current Visit: Yes Status: Acute Assessment and plan: Elevated liver enzymes likely secondary to hepatitis a, B, C infection Patient currently receiving maintenance IV fluids Gastroenterology consultation pending Repeat CMP in a.m. - Time Spent With Patient Total time spent is greater than 50% in coordination of care (as documented) at patient's floor/unit and/or counseling patient:
[2018-07-29] MEDS ORDERED: Ibuprofen 400 MG TABLET PO PRN (21:22)
[2018-07-29] MEDS ORDERED: Naloxone 0.4 MG/ML INJ IVP PRN (21:22)
[2018-07-29] MEDS ORDERED: Ondansetron ODT 4 MG TAB.RAPDIS SL PRN (21:37)
[2018-07-30] MEDS: 0.9 % Sodium Chloride 1,000 ML IVC SCH ×2 (01:11→12:10)
[2018-07-30] MEDS ORDERED: *HR* Buprenorphine HCl 2 MG SUBLINGUAL TABLET SL SCH (09:00)
[2018-07-30 11:27] LABS: Basophils % 0.9 %; Eosinophils # 0.1 K/mcL (0.0-0.6); Eosinophils % 2.1 %; Hematocrit 41.1 % (37.5-50.1); Hemoglobin 13.4 g/dL (12.9-16.9); Immature Granulocytes % 0.3 % (0-4); Immature Platelets 6.6 % (1.1-6.1); Lymphocytes # 1.9 K/mcL (0.6-4.6); Lymphocytes % 56.8 %; Mean Corpuscular HGB Conc 32.6 g/dL (31.6-35.5); Mean Corpuscular Hemoglobin 28.6 pg (28.0-33.3); Mean Corpuscular Volume 87.8 fL (83.0-100.0); Mean Platelet Volume 11.3 fL (9.4-12.4); Monocytes # 0.5 K/mcL (0.0-1.3); Neutrophils # 0.8 K/mcL (1.6-8.9); Platelet Count 121 K/mcL (140-400); Red Blood Count 4.68 M/mcL (4.19-5.50); Red Cell Distribution Width 13.4 % (11.5-14.5); Segmented Neutrophils % 23.9 %
[2018-07-30] MEDS: Nicotine 7 MG PATCH.TD24 TD SCH (12:10)
[2018-07-30] MEDS: *HR* Buprenorphine HCl 8 MG TAB.SUBL SL SCH (12:10)
--- NOTE | 2018-07-30 12:36 | Gastroenterology Consult Note ---
<Carmen Ashley - Last Filed: 07/30/18 12:33> Date of Encounter: 07/30/18 Time of Encounter: 12:20 - Assessment and plan (1) Transaminitis Current Visit: Yes Status: Acute Assessment and plan: Most likely due to acute hepatitis A infection. Recommend supportive care, IV fluids, advance diet when tolerated. Monitor labs. (2) Hepatitis A Current Visit: Yes Status: Acute Assessment and plan: Advised of precautions to prevent spread to other people in the household. Supportive care. Qualifiers: Hepatic coma status: without hepatic coma Qualified Code(s): B15.9 - Hepatitis A without hepatic coma (3) Hepatitis B Current Visit: Yes Status: Acute Assessment and plan: Will follow as outpatient Qualifiers: Viral hepatitis chronicity: unspecified Hepatic coma status: without hepatic coma Hepatitis delta agent presence: without delta-agent Qualified Code(s): B19.10 - Unspecified viral hepatitis B without hepatic coma (4) Hepatitis C Current Visit: Yes Status: Acute Assessment and plan: Will follow as an outpatient advised must had negative drug tests for at least 6 months for most insurances to approve treatment. Qualifiers: Viral hepatitis chronicity: unspecified Hepatic coma status: without hepatic coma Qualified Code(s): B19.20 - Unspecified viral hepatitis C without hepatic coma - Time Spent With Patient Total time spent is greater than 50% in coordination of care (as documented) at patient's floor/unit and/or counseling patient: GI History of Present Illness - Data of Consult Patient: new to practice Consult date: 07/30/18 Requesting Physician: Kev Álvarez MD - Consult Narrative Reason for consult: hep a/b/c History of present illness: Mr. Yoo is a 33 year old male with no notable past medical history. Social history consists of homelessness, past IV drug abuse, past other substance abuse, current tobacco abuse, current Suboxone clinic patient, no alcohol use. He reports he has been clean for the past month. He presented with chief complaint of right flank and right upper quadrant abdominal pain for several days. He denies any travel or strange foods. He does state that his oldest son had similar symptoms last week and was diagnosed with an virus he could not recall. He also complains of associated fatigue, nausea, vomiting, anorexia. He states the pain is worse with deep breath. On arrival vitals were stable. In the ED CBC/CMP were significant for decreased white count, elevated bilirubin and liver enzymes. Gallbladder US demonstrated non-specific trace pericholecystic fluid. Hepatitis panel was positive for Hep A IgM Ab, Hep B Core IgM AB, and Hep C Ab. Past Med Surg Social Fam HX - Past Medical History Medical history: no medical history, non-contributory Additional medical history: Hep C Psychiatric history: no psych history - Social History Smoking Status: Current every day smoker Smokeless Tobacco Status: No Alcohol use: none Drug use: other Review of Systems: GI: as per [facility] GENERAL: denies fever, has some chills EYES: yellow discoloration ENT: denies pain with swallowing or difficulty swallowing CARDIO: denies chest pain, palpitations RESP: No Shortness of breath with exertion : reports dark urine NEURO: denies any weakness HEME: Denies any bruising MS: denies joint pain, joint swelling or back pain. DERM: denies rash or itching PSYCH: history of anxiety, depression and IVDU - Constitutional Vitals: Temp Pulse Resp BP Pulse Ox 98.4 F 69 16 127/83 95 07/29/18 22:49 07/29/18 22:49 07/29/18 22:49 07/29/18 22:49 07/29/18 22:49 Exam: CONSTITUTIONAL:alert, no acute distress.HEAD:normocephalic.EYES:mild jaundice.NECK:no obvious swelling.HEART:regular rate and rhythm, no murmurs.LUNGS:bilateral good air entry.ABDOMEN:non distended, soft, tender epigastric and RUQ area, no masses palpable, no organomegaly.RECTAL EX AM:Deferred.EXTREMITIES:no clubbing, cyanosis or edema.SKIN:no stigmata of chronic liver disease, multiple tattoos noted, circular scars noted to bilateral arms and legs.NEUROLOGIC:no obvious focal defect. Results - Labs CBC & Chem 7: 07/29/18 14:22 07/29/18 14:22 Labs: Last Result Calcium 9.2 mg/dL (8.6-10.3) 07/29/18 14:22 Entire Visit Hgb 14.4 g/dL (12.9-16.9) 07/29/18 14:22 Hct 44.4 % (37.5-50.1) 07/29/18 14:22 PT 13.4 Seconds (9.4-12.1) H 07/29/18 14:22 Total Bilirubin 1.2 mg/dL (0.3-1.0) H 07/29/18 14:22 AST 397 Units/L (13-39) H 07/29/18 14:22 ALT > 500 Units/L (7-52) H 07/29/18 14:22 Lipase 21 Units/L (11-82) 07/29/18 14:22 - ABG ABG results: PT/INR, D-dimer PT 13.4 Seconds (9.4-12.1) H 07/29/18 14:22 - Impressions Impressions Chest X-Ray 07/29/18 14:00 IMPRESSION: 1. No acute cardiopulmonary process. 2. Indeterminate 6 mm nodule projecting over the right middle lobe. Consider CT correlation to further characterize this nodule. D/ / 07/29/2018 14:26:04 Gabriel Vance MD / [facility]ibel Interpreting Provider: Gabriel Vance MD Gallbladder Ultrasound 07/29/18 14:30 IMPRESSION: Small area of hypoechogenicity along the wall of the gallbladder favored to represent focal fatty sparing. Trace amount of pericholecystic fluid considered less likely. If there is persistent clinical concern for biliary dysfunction, a nuclear medicine hepatobiliary scan could always be considered to evaluate for function and exclude possibility of underlying acute cholecystitis. D/ / 07/29/2018 15:34:51 Nicolas Whitney MD / rebecca Interpreting Provider: Nicolas Whitney MD Consult Discharge Plan - Plan Referrals: NONE,PCP [Primary Care Provider] - <Hiro Vivas - Last Filed: 07/30/18 17:41> Time of Encounter: 14:00 - Time Spent With Patient Total time spent is greater than 50% in coordination of care (as documented) at patient's floor/unit and/or counseling patient: GI History of Present Illness - Data of Consult Requesting Physician: Kev Álvarez MD - Consult Narrative History of present illness: Mr. Yoo is a 33 year old male - Constitutional Vitals: Temp Pulse Resp BP Pulse Ox 98.0 F 62 14 109/70 99 07/30/18 14:01 07/30/18 14:01 07/30/18 14:01 07/30/18 14:01 07/30/18 14:01 Results - Labs CBC & Chem 7: 07/30/18 04:36 07/30/18 04:36 Labs: Last Result Calcium 8.5 mg/dL (8.6-10.3) L 07/30/18 04:36 Urine Opiates Screen Negative ng/mL (Pihfht=429) 07/29/18 16:45 Entire Visit Hgb 13.4 g/dL (12.9-16.9) 07/30/18 04:36 Hct 41.1 % (37.5-50.1) 07/30/18 04:36 PT 13.4 Seconds (9.4-12.1) H 07/29/18 14:22 Total Bilirubin 1.4 mg/dL (0.3-1.0) H 07/30/18 04:36 AST 421 Units/L (13-39) H 07/30/18 04:36 ALT > 500 Units/L (7-52) H 07/30/18 04:36 Lipase 21 Units/L (11-82) 07/29/18 14:22 - ABG ABG results: PT/INR, D-dimer PT 13.4 Seconds (9.4-12.1) H 07/29/18 14:22 - Impressions Impressions Gallbladder Ultrasound 07/29/18 14:30 IMPRESSION: Small area of hypoechogenicity along the wall of the gallbladder favored to represent focal fatty sparing. Trace amount of pericholecystic fluid considered less likely. If there is persistent clinical concern for biliary dysfunction, a nuclear medicine hepatobiliary scan could always be considered to evaluate for function and exclude possibility of underlying acute cholecystitis. D/ / 07/29/2018 15:34:51 Nicolas Whitney MD / [facility] Interpreting Provider: Nicolas Whitney MD - Attending Attestation I have personally performed a face to face evaluation on this patient. I have reviewed and agree with the care plan. History and Exam by me shows: Patient seen. Complaining of mild right upper quadrant pain. on examination; jaundice and tenderness in the upper abdomen. Assessment: patient with acute hepatitis A, but his B surface antigen is negative so does not have acute hepatitis B infection. Rec: Symptomatic treatment supportive care
[2018-07-30 12:43] LABS: Alanine Aminotransferase > 500 Units/L (7-52); Albumin 3.4 g/dL (3.5-5.7); Albumin/Globulin Ratio 1.3 (1.1-2.2); Alkaline Phosphatase 105 Units/L (34-104); Aspartate Amino Transferase 421 Units/L (13-39); BUN/Creatinine Ratio 14 (6-26); Bilirubin,Total 1.4 mg/dL (0.3-1.0); Blood Urea Nitrogen 9 mg/dL (6-20); Calcium 8.5 mg/dL (8.6-10.3); Carbon Dioxide 26 mEq/L (23-29); Chloride 106 mEq/L (98-107); Globulin 2.6 g/dL (2.4-3.5); Glucose 95 mg/dL (70-105); Osmolality,Calculated 282 (280-300); Potassium 3.9 mEq/L (3.5-5.1); Sodium 137 mEq/L (136-145); eGFR For Non-African Americans > 60 (> 60)
[2018-07-30 13:08] LABS: Platelet Estimate Normal (Normal)
[2018-07-30 15:34] LABS: Amphetamine Screen,Urine Negative ng/mL (Cutoff=1000); Barbiturate Screen,Urine Negative ng/mL (Cutoff=200); Benzodiazepines Screen,Urine Negative ng/mL (Cutoff=200); Cannabinoid Screen,Urine Negative ng/mL (Cutoff = 50); Cocaine Screen,Urine Negative ng/mL (Cutoff= 300); Opiate Screen,Urine Negative ng/mL (Cutoff=300); Phencyclidine Screen,Urine Negative ng/mL (Cutoff=25)
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
[2018-07-30] MEDS ORDERED: *HR* Buprenorphine HCl 8 MG TAB.SUBL SL ONE (16:55)
[2018-07-30] MEDS ORDERED: 0.9 % Sodium Chloride 1,000 ML IV.SOLN IV ONE (16:55)
[2018-07-30] MEDS ORDERED: Nicotine 7 MG PATCH.TD24 TD ONE ×2 (16:55)
[2018-07-30] MEDS ORDERED: Ibuprofen 400 MG TABLET PO ONE (16:55)
[2018-07-31 05:22] LABS: Eosinophils # 0.1 K/mcL (0.0-0.6); Eosinophils % 1.3 %; Hematocrit 39.3 % (37.5-50.1); Immature Granulocytes % 0.3 % (0-4); Lymphocytes # 2.3 K/mcL (0.6-4.6); Lymphocytes % 59.7 %; Mean Corpuscular HGB Conc 33.1 g/dL (31.6-35.5); Mean Corpuscular Volume 87.7 fL (83.0-100.0); Mean Platelet Volume 11.2 fL (9.4-12.4); Monocytes # 0.6 K/mcL (0.0-1.3); Monocytes % 15.9 %; Neutrophils # 0.9 K/mcL (1.6-8.9); Platelet Count 134 K/mcL (140-400); Red Blood Count 4.48 M/mcL (4.19-5.50); Red Cell Distribution Width 13.6 % (11.5-14.5); Segmented Neutrophils % 21.8 %
[2018-07-31 05:43] LABS: Alanine Aminotransferase > 500 Units/L (7-52); Albumin 3.4 g/dL (3.5-5.7); Albumin/Globulin Ratio 1.1 (1.1-2.2); Alkaline Phosphatase 121 Units/L (34-104); Aspartate Amino Transferase 484 Units/L (13-39); BUN/Creatinine Ratio 18 (6-26); Bilirubin,Total 2.1 mg/dL (0.3-1.0); Blood Urea Nitrogen 14 mg/dL (6-20); Calcium 8.8 mg/dL (8.6-10.3); Carbon Dioxide 32 mEq/L (23-29); Chloride 105 mEq/L (98-107); Globulin 3.1 g/dL (2.4-3.5); Glucose 90 mg/dL (70-105); Osmolality,Calculated 294 (280-300); Potassium 4.4 mEq/L (3.5-5.1); Sodium 142 mEq/L (136-145); Total Protein 6.5 g/dL (6.4-8.9); eGFR For Non-African Americans > 60 (> 60)
[2018-07-31 06:26] LABS: Reactive Lymphocytes Present (Not Present)
[2018-07-31 06:27] LABS: Platelet Estimate Slight Decrease (Normal)
[2018-07-31] MEDS: *HR* Buprenorphine HCl 8 MG TAB.SUBL SL SCH (08:42)
[2018-07-31] MEDS: Nicotine 7 MG PATCH.TD24 TD SCH (08:42)
[2018-07-31 10:29] VITALS: BP 102/64
[2018-07-31] MEDS ORDERED: GI Cocktail 40 ML EACH PO ONE (10:32)
--- NOTE | 2018-07-31 12:55 | Discharge Summary ---
<Herminio,Carlie - Last Filed: 07/31/18 12:42> - NOTES TO OUTPATIENT PROVIDER Notes to Outpatient Provider: Mr. Yoo presented due to right upper quadrant pain. He was noted to have hepatitis A, B and C per lab. He is educated about the transmission of the hepatitis. He will follow up with gastroenterology outpatient. Orders not resulted at time of discharge: Pending orders 07/29/18 16:45 Urine tox screen [Drug Screen, Urine] [UCHEM] Stat Date of Encounter: 07/31/18 Time of Encounter: 08:15 - Discharge Diagnosis (1) Hepatitis A Priority: Primary Status: Acute Qualifiers: Hepatic coma status: without hepatic coma Qualified Code(s): B15.9 - Hepatitis A without hepatic coma (2) Transaminitis Priority: Secondary Status: Acute (3) Incidental lung nodule, > 3mm and < 8mm Priority: Secondary Status: Acute (4) Hepatitis B Priority: Secondary Status: Acute Qualifiers: Viral hepatitis chronicity: unspecified Hepatic coma status: without hepatic coma Hepatitis delta agent presence: without delta-agent Qualified Code(s): B19.10 - Unspecified viral hepatitis B without hepatic coma (5) Hepatitis C Priority: Secondary Status: Acute Qualifiers: Viral hepatitis chronicity: unspecified Hepatic coma status: without hepatic coma Qualified Code(s): B19.20 - Unspecified viral hepatitis C without hepatic coma (6) Tobacco abuse Priority: Secondary Status: Chronic (7) Opioid dependence Priority: Secondary Status: Chronic Qualifiers: Substance use status: uncomplicated Qualified Code(s): F11.20 - Opioid dependence, uncomplicated (8) IV drug abuse Priority: Secondary Status: Acute (9) DVT prophylaxis Priority: Secondary Status: Resolved (10) GERD (gastroesophageal reflux disease) Priority: Secondary Status: Acute Qualifiers: Esophagitis presence: esophagitis presence not specified Qualified Code(s): K21.9 - Gastro-esophageal reflux disease without esophagitis Hospital course: Mr. Yoo presented to the ED due to right flank and right upper quadrant abdominal pain. He has history of homelessness, past IV drug abuse, past substance abuse, tobaccos use and currently at suboxone clinic. He also has history of alcohol abuse but quit 4 years ago. His labs showed transaminitis and were positive for hepatitis A, B, and C. He had right upper quadrant ultrasound which showed small area of hypoechoegenicity along the wall of gallbladder. GI was consulted and he will follow up with them outpatient. He was educated about transmission of hepatitis and the precautions required. He should have a CMP on Friday. He will also be discharged with protonix because he has epigastric pain and history of GERD. Today his pain has resolved and he has no complaints. Discharge discussed with: patient - Time Spent with Patient Total time spent providing and/or coordinating discharge services: Less than 30 minutes - Discharge Medications Prescriptions: RX: Omeprazole [PriLOSEC] 40 mg PO DAILY@0630 30 Days #30 capsule. Home Medications: RX: Albuterol Sulfate [Ventolin Hfa] 2 puff IH DAILY PRN 07/29/18 [History] RX: Buprenorphine HCl/Naloxone HCl [Suboxone 8 mg-2 mg Sl Film] 1.25 film SL DAILY 07/29/18 [History] RX: Omeprazole [PriLOSEC] 40 mg PO DAILY@0630 30 Days #30 capsule. 07/31/18 [Rx] Allergies/Adverse Reactions: Allergy/AdvReac Type Severity Reaction Status Date / Time No Known Allergies Allergy Verified 07/29/18 21:25 Date of admission: 07/29/18 20:55 Primary care physician: PCP NONE Consults: 07/29/18 20:18 Consult to Gastroenterology [CONS] Stat Consulting Provider: Crispin Preciado Reason for Consult: Transaminitis, Hep A Time Notified: 20:18 Call Completed: No 07/29/18 21:24 Consult to Senior Technical Specialist [CONS] Routine Reason for SW Consult: Patient is homeless with new diagnosis of Hepatitis A,B,C, will likely need assistance in GI follow up, e.t.c. Discharging clinician: Carlie Durham Anticipated date of discharge: 07/31/18 - Constitutional Vitals: Temp Pulse Resp BP Pulse Ox 98.2 F 59 16 102/64 97 07/31/18 10:25 07/31/18 10:25 07/31/18 10:25 07/31/18 10:25 07/31/18 10:25 General appearance: Present: A&O X 3, pleasant, no acute distress Exam: Awake, alert and oriented - Head Head exam: Present: atraumatic, normocephalic - Eye Eye exam: Present: EOMI, normal appearance, sclera anicteric. Absent: periorbital tenderness - ENT ENT exam: Present: mucous membranes moist, normal exam - Neck Neck exam general surgery: Present: full ROM - Respiratory Respiratory exam: Present: CTAB. Absent: rales, stridor, wheezes - Cardiovascular Cardiovascular exam: Present: RRR, +S1, +S2. Absent: clicks, gallop - GI/Abdominal GI/Abdominal exam: Present: normal bowel sounds, soft. Absent: distended, firm, rigid - Extremities Exam Extremities exam: Present: normal inspection, warm. Absent: calf tenderness, pedal edema, tenderness - Neurological Exam Neurological exam: Present: alert, oriented X3, no focal deficits - Psychiatric Psychiatric exam: Present: normal affect, normal mood - Skin Skin exam: Present: dry, intact, warm. Absent: rash - Patient Status Disposition: Home, Self-Care Condition: Good Overall status at discharge: patient is progressing back to baseline - Ambulatory Orders Ambulatory Orders: Comprehensive Metabolic Panel [CHEM] Time Frame: 08/03/18, Facility: [facility], Location: Lab - Discharge Instructions Instructions: Gastroesophageal Reflux in Children (DC), Viral Hepatitis A (DC), Viral Hepatitis C (DC), Viral Hepatitis B (DC), Pulmonary Nodules (DC) Follow Up With: Pedro El [Resident] - 08/05/18 4:00 pm (Please bring your photo ID, insurance card, and any medications you are on. If you need to cancel please give a 24 hour notice. Please arrive 20 min. early to fill out paperwork. Thank you) Forms: Work/School Release - Diet and Activity Activity: increase activity as tolerated Diet: regular diet <Arnol Glass - Last Filed: 07/31/18 18:41> Orders not resulted at time of discharge: Pending orders 07/29/18 16:45 Urine tox screen [Drug Screen, Urine] [UCHEM] Stat - Discharge Diagnosis (1) Transaminitis Status: Acute (2) Incidental lung nodule, > 3mm and < 8mm Status: Acute (3) Hepatitis A Status: Acute Qualifiers: Hepatic coma status: without hepatic coma Qualified Code(s): B15.9 - Hepatitis A without hepatic coma (4) Hepatitis B Status: Acute Qualifiers: Viral hepatitis chronicity: unspecified Hepatic coma status: without hepatic coma Hepatitis delta agent presence: without delta-agent Qualified Code(s): B19.10 - Unspecified viral hepatitis B without hepatic coma (5) Hepatitis C Status: Acute Qualifiers: Viral hepatitis chronicity: unspecified Hepatic coma status: without hepatic coma Qualified Code(s): B19.20 - Unspecified viral hepatitis C without hepatic coma (6) Tobacco abuse Status: Chronic (7) Opioid dependence Status: Chronic Qualifiers: Substance use status: uncomplicated Qualified Code(s): F11.20 - Opioid dependence, uncomplicated (8) IV drug abuse Status: Acute (9) DVT prophylaxis Status: Resolved (10) GERD (gastroesophageal reflux disease) Status: Acute Qualifiers: Esophagitis presence: esophagitis presence not specified Qualified Code(s): K21.9 - Gastro-esophageal reflux disease without esophagitis Hospital course: Mr. Yoo is a 33 year old male - Time Spent with Patient Total time spent providing and/or coordinating discharge services: Date of admission: 07/29/18 20:55 Primary care physician: PCP NONE Consults: 07/29/18 20:18 Consult to Gastroenterology [CONS] Stat Consulting Provider: [facility] [place] Reason for Consult: Transaminitis, Hep A Time Notified: 20:18 Call Completed: No 07/29/18 21:24 Consult to Senior Technical Specialist [CONS] Routine Reason for SW Consult: Patient is homeless with new diagnosis of Hepatitis A,B,C, will likely need assistance in GI follow up, e.t.c. - Constitutional Vitals: Temp Pulse Resp BP Pulse Ox 98.2 F 59 16 102/64 97 07/31/18 10:25 07/31/18 10:25 07/31/18 10:25 07/31/18 10:25 07/31/18 10:25 - Attending Attestation I examined this patient and my medical decision-making was reviewed with the Resident Physician Dr. Durham. I agree with the documented findings, disposition and treatment plan as described except to the extent set forth below. Mr. Yoo is a 33 year old male with no notable past medical history other than IV drug abuse on currently on Suboxone therapy, with social history consists of homelessness presented with chief complaint of right flank and right upper quadrant abdominal pain for several days. His LFT's elevated. He denied any CP SOB. His abd pain also better. He is tolerating PO intake well today Gen: A, A, O x 3 Chest: Diminished BS b/l Abd: Soft, NT 1. Acute hepatitis - viral Hep A and possible chronic Hep B and Hep C infection cont supportive care Cont f/u on LFT's Hep C viral load and Se[place] type ordered appreciate GI recommendations Medically stable to d/c home recommend to have f/u CMP as an out pt and f/u with PCP / GI in one week
== END 2018-07-31 16:56 | disposition home or self-care (01) ==
LOC: EMEROOARM 13:36 → 3ANU 13:36
PROVIDERS: ADMIT Family Medicine; ATTEND Family Medicine